=== PATIENT | male | born 1980 | race Caucasian/White ===

== ENCOUNTER 2017-11-05 20:34 | Emergency (ER) | payer SELFPAY ==
[~2017-11-05] VITALS: Ht 185.4 cm; Wt 98.5 kg
[2017-11-05] MEDS ORDERED: NORCO 10/3251 TABLET PO (22:30)
[2017-11-06 01:13] VITALS: BP 122/90
== END 2017-11-06 01:14 | disposition home or self-care (01) ==
LOC: TRA 20:34 → EDBD 20:34 → EME 20:34 → TRA 11-06 01:14
DX: S92.061A Displaced intraarticular fracture of right calcaneus, initial encounter for closed fracture (principal); S92.062A Displaced intraarticular fracture of left calcaneus, initial encounter for closed fracture; W11.XXXA Fall on and from ladder, initial encounter
CPT/HCPCS: 73610; 73630